=== PATIENT | male | born 1980 | race Caucasian/White ===

== ENCOUNTER → 2018-11-11 | Outpatient (CLI) | payer BC | LOC: FIMAGING 12:38 | PROVIDERS: ATTEND Family Medicine | DX: M54.5 Low back pain (principal); M48.061 Spinal stenosis, lumbar region without neurogenic claudication ==

== ENCOUNTER 2018-12-02 09:29 | Inpatient (IN) | payer BC ==
[2018-12-02] MEDS ORDERED: BUPIVACAINE 0.25% 30 ML SDV ONE (09:46)
[2018-12-02] MEDS ORDERED: EPINEPHrine 1 MG/ML INJ ONE (09:47)
[2018-12-02] MEDS ORDERED: GENTAMICIN SULFATE 80 MG/2 ML VIAL ONE (09:47)
[2018-12-02] MEDS ORDERED: THROMBIN (BOVINE) 20,000 UNIT VIAL TP ONE (09:47)
[2018-12-02] MEDS ORDERED: CHLORHEXIDINE GLUC HIBICLENS 118 ML BTL TP ONE (09:47)
[2018-12-02] MEDS ORDERED: GABAPENTIN 300 MG CAP PO ONE (09:51)
[2018-12-02] MEDS ORDERED: ceFAZolin 2 GM/DEXTROSE 100 ML IV ONE (09:51)
[2018-12-02] MEDS ORDERED: ACETAMINOPHEN 500 MG TAB PO ONE (09:51)
[2018-12-02] MEDS ORDERED: LR 1,000 ML IV ONE (09:55)
[2018-12-02 10:46] LABS: INR 1.09 (0.83-1.16); PROTIME(PATIENT) 13.7 SEC (12.0-15.0)
[2018-12-02] MEDS ORDERED: MIDAZOLAM 2 MG/2 ML VIAL IVP ONE (12:07)
--- NOTE | 2018-12-02 12:07 | PDANEPAE ---
ANE History of Present Illness lumbar radiculopathy, here for TLIF ANE Past Medical History - Cardiovascular History Hx Hypertension: No Hx Arrhythmias: No Hx Chest Pain: No Hx Coronary Artery / Peripheral Vascular Disease: No Hx CHF / Valvular Disease: No Hx Palpitations: No - Pulmonary History Hx COPD: No Hx Asthma/Reactive Airway Disease: Yes Hx Recent Upper Respiratory Infection: No Hx Oxygen in Use at Home: No Hx Sleep Apnea: No Sleep Apnea Screening Result - Last Documented: Negative Pulmonary History Comment: asthma as child, no problems since - Neurologic History Hx Cerebrovascular Accident: No Hx Seizures: No Hx Dementia: No Neurologic History Comment: right toes are always numb since herniation in 2001 - Endocrine History Hx Diabetes: No - Renal History Hx Renal Disorders: No - Liver History Hx Hepatic Disorders: No - Neurological & Psychiatric Hx Hx Neurological and Psychiatric Disorders: No - Cancer History Hx Cancer: No - Congenital Disorder History Hx Congenital Disorders: No - GI History Hx Gastrointestinal Disorders: No - Other Health History Other Health History: wears contacts - Chronic Pain History Chronic Pain: Yes (lower back, sciatica along right leg) - Surgical History Prior Surgeries: 2013 discectomy and laminectomy. varicose vein ablation recently. abd surgery from being hit by horse at 1 yo. wisdom teeth removed ANE Review of Systems Review of Systems: - Exercise capacity METS (RN): 4 METS ANE Patient History - Allergies Allergies/Adverse Reactions: No Known Allergies Allergy (Verified 11/23/18 15:55) - Home Medications Home Medications: Albuterol [Proventil Inhaler HFA (*)] 1 - 2 puffs IH Q4H PRN 11/18/18 [Last Taken Unknown] Ibuprofen [Motrin (*)] 200 - 600 mg PO TID PRN 11/18/18 [Last Taken 1 Week Ago ~ 11/25/18] Multivitamins [Multivitamin (*)] 1 each PO DAILY 11/18/18 [Last Taken 1 Week Ago ~11/25/18] - NPO status NPO Status: no food or drink >8 hours NPO Since - Liquids (Date): 12/01/18 NPO Since - Liquids (Time): 21:00 NPO Since - Solids (Date): 12/02/18 NPO Since - Solids (Time): 08:00 - Anes Hx Anes Hx: no prior problems - Smoking Hx Smoking Status: Never smoked - Alcohol Use Alcohol Use: Occasionally - Family Anes Hx Family Anes Hx: none Family Hx Anesthesia Complications: none ANE Labs/Vital Signs - Labs Result Diagrams: 12/02/18 10:25 - Vital Signs Blood Pressure: 117/74 Heart Rate: 63 Respiratory Rate: 16 O2 Sat (%): 97 Height: 190.5 cm Weight: 87.09 kg ANE Physical Exam - Airway Neck exam: FROM Mallampati Score: Class 2 Mouth exam: normal dental/mouth exam - Pulmonary Pulmonary: no respiratory distress, clear to auscultation - Cardiovascular Cardiovascular: regular rate and rhythym, no murmur, rub, or gallop - ASA Status ASA Status: II ANE Anesthesia Plan Anesthesia Plan: general endotracheal anesthesia Lines/Monitors: arterial line, additional IV Total IV Anesthesia: Yes
--- NOTE | 2018-12-02 12:12 | PDHPUP ---
History & Physical Update H&P update statement: This history and physical update is based on an assessment of the patient which was completed after admission or registration (within 24 hours), but prior to the surgery/procedure. H&P update: H&P reviewed & patient examined, no change in patient's condition since H&P completed
[2018-12-02] MEDS ORDERED: fentaNYL 100 MCG/2 ML INJ ONE ×2 (12:16→19:09)
[2018-12-02] MEDS ORDERED: PROPOFOL 200 MG/20 ML VIAL ONE (12:16)
[2018-12-02] MEDS ORDERED: PROPOFOL/EMULSION 500 MG/50 ML BOTTLE IV ONE ×3 (12:16→17:24)
[2018-12-02] MEDS ORDERED: REMIFENTANIL HCL 1 MG VIAL ONE ×3 (12:16→17:24)
[2018-12-02] MEDS ORDERED: LIDOCAINE 2% 100 MG/5 ML SYR ONE (12:17)
[2018-12-02] MEDS ORDERED: ROCURONIUM 50 MG/5 ML VIAL ONE (12:17)
[2018-12-02] MEDS ORDERED: ceFAZolin 1 GM VIAL ONE (16:17)
[2018-12-02] MEDS ORDERED: SURGIFLO MATRIX KIT WITH THROMBIN 8 ML TP ONE (16:56)
[2018-12-02] MEDS ORDERED: BACITRACIN 50,000 UNITS/10 ML SYR IRR ONE (18:03)
[2018-12-02] MEDS ORDERED: ONDANSETRON 4 MG/2 ML VIAL IVP PRN ×2 (18:17→18:41)
[2018-12-02] MEDS ORDERED: HYDROmorphONE/DILAUDID 2 MG/ML INJ IVP PRN (18:17)
[2018-12-02] MEDS ORDERED: ACETAMINOPHEN 500 MG TAB PO PRN (18:17)
[2018-12-02] MEDS ORDERED: DIAZEPAM 5 MG/ML 1 ML SYR IVP PRN (18:17)
[2018-12-02] MEDS ORDERED: oxyCODONE IR 5 MG TAB PO PRN (18:17)
[2018-12-02] MEDS ORDERED: NALOXONE HCL 0.4 MG/ML INJ IVP PRN (18:17)
[2018-12-02] MEDS ORDERED: PROMETHAZINE HCL 25 MG/ML INJ IVP PRN (18:17)
[2018-12-02] MEDS ORDERED: HYDROCODONE/APAP 5/325 TAB PO PRN (18:17)
[2018-12-02] MEDS ORDERED: HYDROmorphONE/DILAUDID 2 MG/ML INJ ONE (18:18)
[2018-12-02] MEDS ORDERED: ONDANSETRON DISINTEGRATING 4 MG TAB PO PRN (18:41)
[2018-12-02] MEDS ORDERED: MAGNESIUM HYDROXIDE 30 ML UDCUP PO PRN (18:41)
[2018-12-02] MEDS ORDERED: diphenhydrAMINE 25 MG CAP PO PRN (18:41)
[2018-12-02] MEDS ORDERED: LACTULOSE 20 GM/30 ML UDCUP PO PRN (18:41)
[2018-12-02] MEDS ORDERED: BISACODYL 10 MG SUPP PR PRN (18:41)
[2018-12-02] MEDS ORDERED: POLYETHYLENE GLYCOL 3350 17 GM PKT PO PRN (18:41)
[2018-12-02] MEDS ORDERED: NS 1,000 ML IV SCH (18:45)
--- NOTE | 2018-12-02 18:48 | POSTANESTH ---
Post Anesthetic Evaluation Cardiovascular Status: Normal, Stable, Similar to Pre-Op Cond Respiratory Status: Normal, Stable, Similar to Pre-op Cond. Level of Consciousness/Mental Status: Can Participate in Eval, Alert and Oriented Pain Control: Adequate, Prn Tx Ordered Nausea/Vomiting Control: Adequate, Prn Tx Ordered Complications Possibly Related to Anesthesia: None Noted
--- NOTE | 2018-12-02 18:54 | POSTOPPROG ---
Post Op Note Date of Operation: 12/02/18 Surgeon: Kenisha Helms Coal Tram Driver: Saira You PA-C Anesthesiologist: Dr. Zen Infante Anesthesia: GET(General Endotracheal) Pre-op Diagnosis: Lumbar spondylosis Post-op Diagnosis: Lumbar spondylosis Procedure: TLIF L4-S1 Inf/Abcess present in the surg proc area at time of surgery?: No Depth: Deep Incisional (Fascial) EBL: 100-500 Drains: Hakan Reynoso Plan Plan: 38 yo male s/p TLIF L4-S1 - neuro checks - pain control - MAGALI drain x 1 - postop L-spine x-rays in am - wear brace when out of bed - PT/OT - SCDs/TEDs, Lovenox to start POD#2 Exam Awake. Alert Following commands Strength full at 5/5
[2018-12-02] MEDS: fentaNYL 100 MCG/2 ML INJ IVP PRN ×2 (19:11→19:36)
--- NOTE | 2018-12-02 21:12 | GOP ---
[f rep st] OPERATIVE REPORT DATE OF OPERATION: 12/02/2018 SURGEON: Kenisha Helms DO NEUROSURGEON: Kenisha Helms DO NAILER HAND: Kate HUMMEL. PREOPERATIVE DIAGNOSIS: 1. Herniated nucleus pulposus. 2. Spondylosis. 3. Radiculopathy. POSTOPERATIVE DIAGNOSIS: 1. Herniated nucleus pulposus. 2. Spondylosis. 3. Radiculopathy. PROCEDURE PERFORMED: L4-5, L5-S1 transforaminal lumbar interbody fusion with Medtronic 4.75 Solera bilateral pedicle screw s and 8 x 28 Elevate interbody graft at L4-5 and 7 x 28 Elevate graft at L5-S1 TLIF was from the [facility] t, L4, L5, and S1 bilateral pedicle screw fixation. Complete facetectomy on the right at L4-5, L5-S1 , diskectomy, L4-5, L5-S1, BMP autograft, allograft, Stealth stereotaxis. FINDINGS: SPECIMENS: None. ESTIMATED BLOOD LOSS: 150 mL. DESCRIPTION OF PROCEDURE: He was identified, consented. Sites were marked. Brought to the operatin g room, anesthetized under general trach tube anesthesia, rolled onto the Hakan table. All pressur e points were appropriately padded. He was prepped and draped in the usual sterile fashion. O-arm w as draped and brought in and incision was anesthetized with 0.5% Marcaine with epinephrine. Incision was made with a 10 blade and we dissected down onto the lamina and around the facets of L4-5 and L5- S1. At this point in time, I was informed by Anesthesia that the ET cuff spontaneously deflated and he would need to attempt re-intubation. I elected to rapidly close the wound with rudy and covere d the wound with sterile Tegaderm and gauze and removed the O-arm, undraped the patient, flipped the patient over. The patient was reintubated without difficulty and never had his sats significantly dr op. He was rolled back onto the Hakan table, repositioned. The Tegaderm and gauze were all remove d. He was then re-prepped and redraped. The arm was brought back in. We then removed the rudy a nd prepped the , placed cerebellar retractors, took an x-ray, verified we were at the appro priate position. Placed the Stealth stereotactic arm and performed a stereotactic spin starting with the screws on the left at S1. was found with the stereotactic awl. We then tapped it wi th the Powerease, measured a x 35 mm screw, checked the hole with a ball-tip probe. We ve rified we were in good position and placed the screw with the Powerease. We performed the same proce dure stereotactically at L5 on the left placing a x 45 mm screw at L4 on the left placing a x 50 mm screw. We stemmed all of these screws. They stemmed appropriately. We then mo perry to the other side and performed the same procedure on the right, placing a x 50 mm scr ew at S1 stereotactically. A x 50 mm screw at L5, stereotactically and a x 50 m m screw at L4 on the right stereotactically and stemmed all the screws. The screws as wel l. I took x-rays and performed a stereotactic spin. The 1 screw on the right was a little bit deep and so I turned it back 2 turns in order to keep it bicortical but not have it violate any nerve plex us anterior to the sacrum. We then placed rods on the left and placed them into the appropriate spac e, locking the locking cap and then placing some distraction locking caps using the torque wrench and verifying we had ja above and below on the superior and inferior screws. We did perform the same p rocedure on the right placing a ja and we then brought in the microscope using the Leksell and high- speed drill. We stereotactically decorticated well. We removed the spinous processes. We then ster eotactically decorticated the entire left side and the soft tissue out of the facet joints on the lef t. We then performed a laminectomy and complete facetectomy starting at L4-5 as he had previous surg jante at L5-S1, working down to normal. We were able to remove the lamina of the complete facets, iden tified the nerve root and completely decompressed it pedicle to pedicle, moving downward. We did enc ounter scar tissue at L5-S1. At L5-S1, we then moved the thecal sac medially and there was a very la rge osteophyte, which we entered using sequential kiran and attempted to remove a portion of and we were able to shave down the disk, removing disk and cartilaginous endplate, preparing the endplates with ring curettes, measured and placed the 8 x 8 x 28 mm Elevate graft interbody graft packing BMP a nd the patient's own bone anterior BMP and the patient's own bone inside the graft. We were unable t o get it into a more medial position, so it is somewhat lateral in the vertebral body although well p ositioned secondary to the restriction. We then moved up and retracted with a nerve root r etractor. There was a very large subligamentous disk herniation. We entered the anulus with an 11 b lade, and got a very large piece of disk herniation out, got this well decompressed and then performe d diskectomy here using sequential kiran and pituitaries, removing the disk and cartilaginous endpl ates, preparing the endplates once we had bony endplate with ring curettes. We then measured a 7 and 8 x 28 mm Elevate graft, placed it. It was midline and in the appropriate position fully deployed th is graft after packing BMP and the patient's own bone, anterior BMP and the patient's own bone in the center. We then removed the microscope. We copiously irrigated with over 3 L of gentamicin infused saline, packed the patient's BMP and the patient's own bone and the facets that were decorticated an d some Progenix out laterally in the gutters bilaterally and then trocar to drain out inferiorly. Cl osed the fascia with 0 Vicryl pop-offs, subcutaneous layer 2 Vicryl pop-offs, cutaneous layer of 3-0 Vicryl pop-offs. The skin was closed with 3-0 running nylon as the patient had previous surgery. Dr jolleyed with Xeroform gauze and a Tegaderm. Neuro monitoring remained stable throughout and drain was sutured with a 2-0 Vicryl pop-off placed to bulb suction. The patient tolerated procedure well. The re were no complications. FLUIDS: 2500 mL of crystalloid. URINE OUTPUT: Not recorded. DRAINS: One MAGALI in the subfascial space to bulb suction. COMPLICATIONS: At 1 point, just after opening but prior to any Stealth spin, the ET tube spontaneous ly decompressed. It did require that we rapidly close the patient's wound, cover it sterilely and re move the O-arm and take him off the table in order to reintubate the patient. INDICATIONS FOR SURGERY: This is a 38-year-old male with a previous L5-S1 hemilaminectomy, diskectom y, who had a recurrent large disk with facet arthropathy and stenosis at L4-5 and L5-S1 with radiculo erich secondary to herniated disk. He was offered a TLIF. He failed conservative management, elected to move forward with surgery. /[id number]/MODL
[2018-12-02] MEDS: SENNOSIDES/DOCUSATE SODIUM TAB PO SCH (22:09)
[2018-12-02] MEDS: ACETAMINOPHEN 500 MG TAB PO SCH (22:09)
[2018-12-02] MEDS: METHOCARBAMOL 750 MG TAB PO PRN (22:17)
[2018-12-02] MEDS: oxyCODONE IR 5 MG TAB PO PRN (23:52)
[2018-12-02] MEDS: ceFAZolin 2 GM/DEXTROSE 100 ML IV SCH (23:52)
[2018-12-03] MEDS: oxyCODONE IR 5 MG TAB PO PRN ×6 (00:44→22:10)
[2018-12-03] MEDS: METHOCARBAMOL 750 MG TAB PO PRN ×2 (04:29→15:33)
[2018-12-03] MEDS: ACETAMINOPHEN 500 MG TAB PO SCH ×3 (06:29→23:16)
--- NOTE | 2018-12-03 08:13 | NEUSURGPN ---
Date of Surgery: 12/02/18 Post Op Day: 1 Assessment/Plan: 38 yo male s/p TLIF L4-S1 POD#1 - neuro checks - pain control-pt required IV medications last night - MAGALI drain x 1 - postop L-spine x-rays pending - wear brace when out of bed, Electronics Hardware Design Engineer to fit with brace - PT/OT - SCDs/TEDs, Lovenox to start POD#2 Patient was seen by Dr Louie today as well. Please call with questions/concerns Subjective: Expected lower back pain, leg pain improved Objective: AxOx4 MAEx4 5/5 BLE, BUE Sensation intact to light touch BLE Dressing/Incision CDI MAGALI patent Neuro Check Frequency: per routine Urinary Catheter in Place: Yes Urinary Catheter Indication: Other (Use Comment) (Will remove this am) Catheter Insertion Date: 12/02/18 - Physician Patient Seen by : Analia Neurosurgery Physical Exam - Vitals, I&O, Labs I and O 12/02/18 12/03/18 12/04/18 05:59 05:59 05:59 Intake Total 3930 Output Total 1020 Balance 2910 Weight 87.09 kg Intake: Oral (ml) 620 IV Intake (ml) 2700 IV Infused (ml) 610 Ns 1,000 ml @ 75 mls/hr 505 IV CONT EBONIE Rx#: [id number] ceFAZolin 2 GM/DEXTROSE 105 100 ml @ 200 mls/hr IV Q8H EBONIE Rx#:[id number] Output: Urine (ml) 600 Catheter 600 Estimated Blood Loss (ml) 150 MAGALI Drain Output (ml) 270 Back Hakan Reynoso 270 Other: Intake Quantity Yes Sufficient Vital Signs Temp Pulse Resp BP Pulse Ox 37.2 C 69 14 104/60 98 12/03/18 07:57 12/03/18 07:57 12/03/18 07:57 12/03/18 07:57 12/03/18 07:57 Laboratory Results 12/02/18 10:25 ICD10 Worksheet Patient Problems: Problems Problem Status Onset Lumbar stenosis Acute - ICD10 Problem Qualifiers (1) Lumbar stenosis
[2018-12-03] MEDS: SENNOSIDES/DOCUSATE SODIUM TAB PO SCH ×2 (08:34→22:08)
[2018-12-03] MEDS: ceFAZolin 2 GM/DEXTROSE 100 ML IV SCH (08:34)
--- NOTE | 2018-12-03 09:41 | PDMN ---
Medical Necessity [place] [facility] [place] 2 days [place]PO OP: L4/5,L5/S1 TLIF complete facetectomy on R at L4-5,L5-S1 discectomy L4-5,L5-S1 BMP autograft, allograft, stealth stereotaxis
--- NOTE | 2018-12-03 14:27 | ASMTCMCOM ---
CM Note CM Note Notes: Pt had planned spinal surgery, resides with spouse and minor child. PT/OT rec home. Anticipate pt will d/c when medically stable. No CM d/c needs identified. CM available for changes/needs. Date Signed: 12/03/2018 02:26 PM Electronically Signed By:FAIN Shea
[2018-12-04] MEDS: METHOCARBAMOL 750 MG TAB PO PRN (04:44)
[2018-12-04] MEDS: ACETAMINOPHEN 500 MG TAB PO SCH ×2 (05:27→14:04)
[2018-12-04] MEDS: oxyCODONE IR 5 MG TAB PO PRN ×3 (05:27→14:05)
--- NOTE | 2018-12-04 07:20 | NEUSURGPN ---
Date of Surgery: 12/02/18 Post Op Day: 2 Assessment/Plan: 38 yo male s/p TLIF L4-S1 POD#2 - neuro stable - pain control: controlled on current regimen - MAGALI drain x 1 - postop L-spine x-rays with hardware in good placement - wear brace when out of bed - PT/OT - SCDs/TEDs, Lovenox to start POD#2 - Please call with questions/concerns - Home possibly later today pending drain output Discussed with Dr. Helms. Subjective: No lower extremity pain. Unsure if numbness is improved, likely at baseline. Objective: Awake. Alert. PERRL. EOMI Facial expression symmetrical Muscle strength full at 5/5 Sensation intact Incision with dressing c/d/i Catheter Insertion Date: 12/02/18 - Physician Discussed Patient with : Analia Neurosurgery Physical Exam - Vitals, I&O, Labs I and O 12/03/18 12/04/18 12/05/18 05:59 05:59 05:59 Intake Total 3930 1150 Output Total 1020 4090 Balance 2910 -2940 Weight 87.09 kg Intake: Oral (ml) 620 1150 IV Intake (ml) 2700 IV Infused (ml) 610 Ns 1,000 ml @ 75 mls/hr 505 IV CONT EBONIE Rx#: [id number] ceFAZolin 2 GM/DEXTROSE 105 100 ml @ 200 mls/hr IV Q8H EBONIE Rx#:[id number] Output: Urine (ml) 600 3900 Catheter 600 Urinal 3900 Estimated Blood Loss (ml) 150 MAGALI Drain Output (ml) 270 190 Back Hakan Reynoso 270 190 Other: Intake Quantity Yes Yes Sufficient Number of Voids Urinal 1 Vital Signs Temp Pulse Resp BP Pulse Ox 36.9 C 72 14 111/54 L 95 12/03/18 23:56 12/03/18 23:56 12/03/18 23:56 12/03/18 23:56 12/03/18 23:56 Laboratory Results 12/02/18 10:25 ICD10 Worksheet Patient Problems: Problems Problem Status Onset Lumbar stenosis Acute
[2018-12-04 07:55] VITALS: BP 112/68
[2018-12-04] MEDS ORDERED: ENOXAPARIN 40 MG/0.4 ML SYR SC SCH (09:00)
[2018-12-04] MEDS: SENNOSIDES/DOCUSATE SODIUM TAB PO SCH (09:19)
--- NOTE | 2018-12-04 13:55 | ASDISCHSUM ---
Discharge Information Plan Status:Home with No Needs Medically Cleared to Leave: Discharge Date: CM D/C Disposition:Home, Routine, Self-Care ADT D/C Disposition:Home, Routine, Self-Care Projected Discharge Date: Transportation at D/C: Discharge Delay Reason: Follow-Up Date: Discharge Slot: Final Diagnosis: Placement Information Patient Contact Information Contact Name:SALINAS Relationship: Address:[address] [place] [address] City:[place] Alternate Phone: State/Zip Code:[place] [address] Email: Financial Information Financial Class:[facility] Primary Plan Desc: OUT OF STATE PPO Primary Plan Number:[id number] Secondary Plan Desc: Secondary Plan Number: Assessment Information LACE LACE Length of stay for Answers: 2 days current admission Acuity / Level of Answers: Yes Care: Did the patient have an inpatient admission? Comorbidities - select Answers: Opioid dependence all that apply / Chronic pain # of Emergency department Answers: 0 visits in the last 6 months Score: 9 Date Signed: 12/04/2018 01:55 PM Electronically Signed By:Jacquie Patino RN [facility] CM Progress Note CM Note CM Note Notes: Pt had planned spinal surgery, resides with spouse and minor child. PT/OT rec home. Anticipate pt will d/c when medically stable. No CM d/c needs identified. CM available for changes/needs. Date Signed: 12/03/2018 02:26 PM Electronically Signed By:FANI Shea Intervention Information
--- NOTE | 2018-12-09 14:41 | GDS ---
[f rep st] DISCHARGE SUMMARY ADMITTING DIAGNOSIS: Lumbar disk herniation and radiculopathy. DISCHARGE DIAGNOSIS: Lumbar disk herniation and radiculopathy. PROCEDURE: Transfemoral lumbar interbody fusion at L4-5 and L5-S1. CONSULTS: Physical and occupational therapy. HOSPITAL COURSE: The patient is a 38-year-old male who presented to the hospital on December 02 to unde rgo surgical intervention for his lower back. He underwent surgery by Dr. Kenisha Helms on December 02 w ith a transforaminal lumbar interbody fusion at L4-5 and L5-S1. The patient tolerated the surgery we ll without any complication and was transferred to the floor for further neurological checks and pain control. He was fitted with a lumbar brace that is to be worn when out of bed. Postop x-rays were completed and demonstrated hardware in good placement. MAGALI drain was removed once output was reduced. He was seen by physical and occupational therapy. Once he was tolerating a diet, voiding without d ifficulty, pain controlled and medically stable, he was deemed suitable for discharge. He was discha rged to home on December 04, 2018. DISCHARGE INSTRUCTIONS: The patient was asked to follow up with Dr. Kenisha Helms in 2 weeks for a wo und check and suture removal. He needs to wear his brace when out of bed. He was asked to refrain f rom lifting more than 10 pounds and bending and twisting. He needs to avoid taking any NSAIDs, as th priscila inhibit bone growth and the fusion process. /[id number]/MODL
== END 2018-12-04 14:53 | disposition home or self-care (01) | DRG 455 ==
LOC: F3N 09:29
PROVIDERS: ADMIT Neurological Surgery; ATTEND Neurological Surgery
PROC: 00NY0ZZ Release Lumbar Spinal Cord, Open Approach (ICD-10-PCS; principal; 2018-12-02 11:30)
PROC: 0SG30AJ Fusion of Lumbosacral Joint with Interbody Fusion Device, Posterior Approach, Anterior Column, Open Approach (ICD-10-PCS; principal; 2018-12-02 11:30)
PROC: 0ST20ZZ Resection of Lumbar Vertebral Disc, Open Approach (ICD-10-PCS; principal; 2018-12-02 11:30)
PROC: 01NB0ZZ Release Lumbar Nerve, Open Approach (ICD-10-PCS; principal; 2018-12-02 11:30)
PROC: 0SG0071 Fusion of Lumbar Vertebral Joint with Autologous Tissue Substitute, Posterior Approach, Posterior Column, Open Approach (ICD-10-PCS; principal; 2018-12-02 11:30)
PROC: 0SG3071 Fusion of Lumbosacral Joint with Autologous Tissue Substitute, Posterior Approach, Posterior Column, Open Approach (ICD-10-PCS; principal; 2018-12-02 11:30)
PROC: 0SG00AJ Fusion of Lumbar Vertebral Joint with Interbody Fusion Device, Posterior Approach, Anterior Column, Open Approach (ICD-10-PCS; principal; 2018-12-02 11:30)
PROC: 4A1004G Monitoring of Central Nervous Electrical Activity, Intraoperative, Open Approach (ICD-10-PCS; principal; 2018-12-02 11:30)
PROC: 0ST40ZZ Resection of Lumbosacral Disc, Open Approach (ICD-10-PCS; principal; 2018-12-02 11:30)
PROC: 8E0WXBZ Computer Assisted Procedure of Trunk Region (ICD-10-PCS; principal; 2018-12-02 11:30)
DX: M47.26 Other spondylosis with radiculopathy, lumbar region (principal); M48.061 Spinal stenosis, lumbar region without neurogenic claudication; M51.16 Intervertebral disc disorders with radiculopathy, lumbar region; M51.26 Other intervertebral disc displacement, lumbar region
CPT/HCPCS: 97116-GP; 97161-GP; 97166-GO; 97535-GO; C1713; J0171; J0690; J1170; J1580; J1650; J2001; J2250; J2270; J2704; J3010